=== PATIENT | female | born 1990 | race Two or more races ===

== ENCOUNTER 2021-07-19 22:39 | Emergency (ER) | payer SELFPAY ==
[2021-07-19 22:56] VITALS: TEMP 98.2; BMI 21.6
[2021-07-20 01:53] LABS: BASO % 0.4 % (0-2.0); EOS % 1.2 % (0-4.5); HEMATOCRIT 45.8 % (32.4-45.2); HEMOGLOBIN 15.5 GM/dL (10.7-15.3); LYMPH % 37.3 % (8-40); MCH 30.1 pg (25.7-33.7); MCHC 33.8 g/dl (32.0-36.0); MEAN CELL VOLUME 88.8 fl (80-96); MEAN PLT VOLUME 9.2 fl (7.5-11.1); MONO % 7.7 % (3.8-10.2); NEUT % 53.4 % (42.8-82.8); PLATELET COUNT 270 10^3/uL (134-434); RBC 5.16 M/mm3 (3.60-5.2); RDW 13.1 % (11.6-15.6); WHITE BLOOD COUNT 7.6 K/mm3 (4.0-10.0)
[2021-07-20 02:24] LABS: CHLORIDE 108 mmol/L (98-107); SODIUM 140 mmol/L (136-145)
[2021-07-20 02:25] LABS: CALCIUM 9.2 mg/dL (8.5-10.1)
[2021-07-20 02:26] LABS: ALBUMIN 4.5 g/dl (3.4-5.0); ANION GAP 8 MMOL/L (8-16); BLOOD UREA NITROGEN 10.3 mg/dL (7-18); CO2 24 mmol/L (21-32); GLUCOSE,RANDOM 77 mg/dL (74-106)
[2021-07-20] MEDS ORDERED: KETOROLAC TROMETHAMINE 30 MG/1 ML VIAL IVPUSH ONE (02:31)
[2021-07-20 02:32] LABS: ALK PHOS 61 U/L (45-117); BILIRUBIN,TOTAL 0.3 mg/dL (0.2-1); CREATININE 0.9 mg/dL (0.55-1.3); SGOT/AST 15 U/L (15-37); SGPT/ALT 18 U/L (13-61)
[2021-07-20] MEDS ORDERED: KETOROLAC TROMETHAMINE 30 MG/1 ML VIAL ONE (02:49)
[2021-07-20 04:38] VITALS: BP 121/76; PULSE 88
== END 2021-07-20 04:38 | disposition home or self-care (01) ==
LOC: JER 22:39
PROC: 3E0333Z Introduction of Anti-inflammatory into Peripheral Vein, Percutaneous Approach (ICD-10-PCS; principal; 2021-07-19)
DX: R91.1 Solitary pulmonary nodule (principal); R07.9 Chest pain, unspecified
CPT/HCPCS: 36415; 71046-TC-FY; 71275-TC; 80053; 82550; 84443; 84484; 84703; 85025; 85379; 93005; 93010; 99285-25; C9803; U0003; U0005